=== PATIENT | male | born 1965 | race Caucasian/White ===

== ENCOUNTER 2018-01-01 07:13 | Day surgery (SDC) | payer MEDICARE, MEDICAID ==
[2017-12-30 11:10] VITALS: BMI 39.1
[2018-01-01] MEDS ORDERED: Propofol 10 mg/ml Inj (20 ML) ONE ×2 (08:46→09:28)
[2018-01-01] MEDS ORDERED: Lidocaine Hydrochloride 5 ML INJ ONE (08:47)
[2018-01-01 10:05] VITALS: TEMP 97; O2SAT 99
[2018-01-01 10:39] VITALS: RESP 16
[2018-01-01 10:40] VITALS: BP 110/58; PULSE 84
== END 2018-01-01 10:50 | disposition home or self-care (01) ==
LOC: C.ENDO 07:13
PROVIDERS: ATTEND Internal Medicine Gastroenterology
DX: K29.50 Unspecified chronic gastritis without bleeding (principal); K64.1 Second degree hemorrhoids; R10.13 Epigastric pain; K59.00 Constipation, unspecified; E11.9 Type 2 diabetes mellitus without complications; E78.5 Hyperlipidemia, unspecified; I10 Essential (primary) hypertension; E66.9 Obesity, unspecified; Z79.84 Long term (current) use of oral hypoglycemic drugs; Z68.41 Body mass index [BMI] 40.0-44.9, adult
CPT/HCPCS: 43239; 45378; 82948; 88305; 88313; 88342; J2704

== ENCOUNTER 2018-02-24 07:32 | Day surgery (SDC) | payer MEDICARE, MEDICAID ==
[2018-01-15 10:48] VITALS: BMI 43.5
[2018-02-24] MEDS ORDERED: Bupivacaine 0.25% Inj(30mL) IJ ONE (09:20)
[2018-02-24] MEDS ORDERED: Lidocaine/Epinephrine 1% 1:100000 10 ML IJ ONE (09:37)
[2018-02-24] MEDS ORDERED: Clindamycin 600mg/50ml NS 600 MG/50 ML BAG IVPB ONE (09:58)
[2018-02-24] MEDS ORDERED: Midazolam 2 MG/2 ML VIAL ONE (09:58)
[2018-02-24] MEDS ORDERED: HYDROmorphone 0.5 mg/0.5 ml ISec IVP PRN (10:15)
[2018-02-24] MEDS ORDERED: Oxycodone/Acetaminophen 5/325 mg Tab PO PRN (10:25)
--- NOTE | 2018-02-24 10:25 | PCM.SURG1 ---
Surgeon's Initial Post Op Note - Surgeon's Notes Surgeon: Dr Silverio Medical Secretary Teacher: none Type of Anesthesia: General Endo Pre-Operative Diagnosis: sebaceous cyst Operative Findings: see report Post-Operative Diagnosis: as above Operation Performed: excision of sebaceous cyst of chin Specimen/Specimens Removed: sebaceous cyst Estimated Blood Loss: EBL {In ML}: 2 Blood Products Given: N/A Drains Used: No Drains Post-Op Condition: Good Date of Surgery/Procedure: 02/24/18 Time of Surgery/Procedure: 10:25
[2018-02-24 12:04] VITALS: BP 155/65; PULSE 63; RESP 18; TEMP 98; O2SAT 100
--- NOTE | 2018-02-25 06:49 | OP ---
PROCEDURE DATE: 02/24/2018 PREOPERATIVE DIAGNOSIS: Sebaceous cyst of the chin. POSTOPERATIVE DIAGNOSIS: Sebaceous cyst of the chin. PROCEDURE DONE: 1. Excision of sebaceous cyst of the chin, 2 x 1 cm size. 2. Layer closure of the wound, 2 x 1 cm size. SURGEON: Dale Silverio MD DIRECTOR OF MOBILE MARKETING: None. ANESTHESIA: Local anesthesia plus sedation. ESTIMATED BLOOD LOSS: Around 10 mL. COMPLICATIONS: None. DRAINS: None. PATHOLOGY: Sebaceous cyst was sent for the Pathology. COMPLICATIONS: None. INTRAOPERATIVE FINDINGS: The patient had approximately 2 x 1 cm sebaceous cyst of the chin area. DESCRIPTION OF PROCEDURE: On intraoperative steps, this is a 52-year-old male who was diagnosed with sebaceous cyst of the chin, and patient was consented for excision of sebaceous cyst of the chin, brought to the OR, placed supine on operating table. After induction of the sedation, the chin area was prepped and draped in usual sterile fashion, local anesthesia was injected. An elliptical 2 cm x 1 cm incision was made after incising skin and subcutaneous tissue and deep layer. The upper and lower flap was created and sebaceous cyst was completely excised and sent off the table for the pathology. Hemostasis was achieved. The wound was irrigated and wound was closed in a multiple layer. Deep layer of subcutaneous with 2-0 Vicryl, another layer of the skin with 4-0 Monocryl, and dry sterile dressing was applied. The patient tolerated the procedure well. Count of the instrument and gauze was correct. There was no apparent complication. The patient was reversed from sedation. Sent to the postanesthesia care unit in stable condition. Dale Silverio MD
== END 2018-02-24 12:06 | disposition home or self-care (01) ==
LOC: C.SDS 07:32
PROVIDERS: ATTEND Surgery Surgical Critical Care
DX: L72.0 Epidermal cyst (principal); M19.90 Unspecified osteoarthritis, unspecified site; E11.9 Type 2 diabetes mellitus without complications; E78.5 Hyperlipidemia, unspecified; I10 Essential (primary) hypertension; K21.9 Gastro-esophageal reflux disease without esophagitis; Z88.0 Allergy status to penicillin; Z79.84 Long term (current) use of oral hypoglycemic drugs; Z79.4 Long term (current) use of insulin
CPT/HCPCS: 11404; 12052; 82948; 88305; J2250